=== PATIENT | female | born 1995 | race Caucasian/White ===

== ENCOUNTER 2017-05-07 11:41 | Observation (INO) ==
--- OUTSIDE RECORDS SUMMARY | 2017-05-07 12:15 | External Medical Summary | Summary of Care ---
:1995 Author Name Surekha Charles M.D. Address Unavailable Unavailable , Care Team Providers Name Role Phone Surekha Charles M.D. 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 Start 20-Apr-2016 End 30-Apr-2016 Active Allergies and Adverse Reactions Name Dates Details Amoxicillin CAPS (Allergy) Status: Active Past Medical History Name Dates Details History of abdominal pain (V13.89, Z87.898) Status: Resolved History of Acute pyelonephritis without lesion of renal medullary necrosis ( 590.10, N10) Status: Resolved History of Acute sinusitis (461.9, J01.90) Status: Resolved History of acute sinusitis (V12.69, Z87.09) Status: Resolved History of Body aches (780.96, R52) Status: Resolved History of Body aches (780.96, R52) Status: Resolved History of conjunctivitis (V12.49, Z86.69) Status: Resolved History of Contact dermatitis due to plant (692.6, L25.5) Status: Resolved History of Cough (786.2, R05) Status: Resolved History of Dysuria (788.1, R30.0) Status: Resolved History of fever (V13.89, Z87.898) Status: Resolved History of headache (V13.89, Z87.898) Status: Resolved History of Hidradenitis (705.83, L73.2) Status: Resolved History of impacted cerumen (V12.49, Z86.69) Status: Resolved History of influenza (V12.09, Z87.09) Status: Resolved History of Influenza-like illness (799.89, R69) Status: Resolved History of Laceration of great toe (893.0, S91.113A) Status: Resolved History of Other acute sinusitis (461.8, J01.80) Status: Resolved History of pharyngitis (V12.69, Z87.09) Status: Resolved History of vomiting (V13.89, Z87.898) Status: Resolved Procedures Procedure Dates Details History of Oral Surgery Procedures not documented Immunization Name Dates Details Hepatitis B on: 26-Feb-1998 DTaP on: 26-Feb-1998 OPV on: 26-Feb-1998 HIB on: 26-Feb-1998 DTaP on: 23-Apr-1998 OPV on: 23-Apr-1998 HIB on: 23-Apr-1998 Hepatitis B on: 23-Apr-1998 DTaP on: 02-Jul-1998 OPV on: 02-Jul-1998 HIB on: 02-Jul-1998 Hepatitis B on: DTaP on: 27-Dec-1998 HIB on: 27-Dec-1998 MMR on: 27-Dec-1998 Varicella on: 27-Dec-1998 Pneumo (Prevnar) on: 02-Jan-2000 DTaP on: IPV on: MMR on: Influenza on: 01-Feb-2009 Influenza A (H1N1) Monoval Vac LIQD on: 01-Feb-2009 Tdap (Adacel) on: 25-Nov-2009 Varicella on: 25-Nov-2009 FluMist LIQD on: 25-Nov-2009 Fluvirin INJ on: 24-Apr-2012 Influenza on: 21-Mar-2014 Hepatitis A #1 on: 19-Aug-2015 Lot #: [id number] Menactra Intramuscular Injectable #1 on: 19-Aug-2015 Lot #: [id number] Bexsero Intramuscular Suspension Prefilled Syringe #1 on: 19-Aug-2015 Lot #: [id number] Tdap (Adacel) on: 19-Aug-2015 Lot #: [id number] Bexsero Intramuscular Suspension Prefilled Syringe on: Lot #: [id number] Family History Unknown Family Member Name Dates Details Adopted (V68.89, Z02.82) Comments: Family History Status: Active Mother Name Dates Details Family history of multiple sclerosis (V17.2, Z82.0) Status: Active Social History Name Dates Details - Status: Smoking Status Name Dates Details Never smoker Vital Signs Date Test Result Details 20-Apr-2016 10:35 Temperature 99 f Status: Weight 138.5 lb Status: 07-Apr-2016 11:20 BP Systolic 112 mm[Hg] Status: BP Diastolic 68 mm[Hg] Status: Weight 142 lb Status: Results Date Description Value Details 08-Apr-2016 13:56 OB- [place] Depression Scale ( EPDS) I have been able to laugh and see the (0) As much as I always could funny side of things I have looked forward with enjoyment to (0) As much as I ever did things I have blamed myself unnecessarily when (2) Yes, some of the time things went wrong I have been anxious or worried for no (1) Hardly ever good reason I have felt scared or panicky for no very (0) No, not at all good reason Things have been getting on top of me (2) Yes, sometimes I have not been coping as well as usual I have been so unhappy that I have had (1) Not very often difficulty sleeping I have felt sad or miserable (0) No, not at all I have been so unhappy that I have been (1) Only occasionally crying The thought of harming myself has (1) Hardly-ever occurred to me Total Score 8 20-Apr-2016 11:25 STREPTOCOCCUS SCREEN WITH CULTURE 5040 *STREPTOCOCCUS SCREEN POSITIVE for Streptococcus Range: NEGATIVE for Streptococcus pyogenes pyogenes (Abnormal) 11:32 INFLUENZA A/B ANTIGEN 5320 Comments: *Negative results do not exclude Influenza viral infection and could be confirmed with Influenza molecular assays. Physician order would be required.* *INFLUENZA A/B ANTIGEN Negative Range: Negative 11:33 CBC w/ Manual Diff 7225 WBC 13.2 K/uL (Above high threshold) Range: 4.5-11.0 RBC 4.82 mil/uL Range: 3.60-5.00 HGB 13.9 g/dL Range: 12.0-16.0 HCT 40.3 % Range: 36.0-48.0 MCV 83.5 fL Range: 80.0-99.0 MCH 28.8 pg Range: 27.3-32.5 MCHC 34.5 % Range: 32.0-36.0 RDW 14.0 % Range: 11.6-14.8 PLATELETS 228 K/uL Range: 150-400 MPV 7.0 fL Range: 6.0-11.0 NEUTRO 11.8 K/uL (Above high threshold) Range: 2.0-6.9 SEGS 81 % (Above high threshold) Range: 37-80 BANDS 0 % Range: 0-7 LYMPH 9 % (Below low threshold) Range: 13-50 MONO 9 % Range: 0-12 EOSIN 1 % Range: 0-7 BASO 0 % Range: 0-3 BERONICA LYMPH 0 % Range: 0-0 META 0 % Range: 0-0 MYELO 0 % Range: 0-0 PRO 0 % Range: 0-0 BLAST 0 % Range: 0-0 NUC RBC 0 /100 WBC Range: 0-0 SMUDGE 0 /100 WBC PLATELET Adequate Range: Adequate 11:36 Mononucleosis Ab (Reflex to EBV) 2011 Comments: * Refer to [facility] results for EBV report* [place] (Reflex to EBV) Negative Range: Negative -Apr-2016 15:56 EBV Acute Infection Antibodies Comments: Testing performed at: [DA] [address], [place], [address], , Data Integrity Consultant: STACI Jauregui MD [id number] EBV AB VCA, IGM <36.0 U/mL Range: 0.0-35.9 Comments: Negative <36.0 Equivocal 36.0 - 43.9 Positive >43.9----- EBV EARLY ANTIGEN AB, IGG <9.0 U/mL Range: 0.0-8.9 Comments: Negative < 9.0 Equivocal 9.0 - 10.9 Positive >10.9----- EBV AB VCA, IGG <18.0 U/mL Range: 0.0-17.9 Comments: Negative <18.0 Equivocal 18.0 - 21.9 Positive >21.9----- EBV NUCLEAR ANTIGEN AB, IGG <18.0 U/mL Range: 0.0-17.9 Comments: Negative <18.0 Equivocal 18.0 - 21.9 Positive >21.9----- INTERPRETATION: Comment Comments: EBV Interpretation Chart Interpretation EBV-IgM EA(D)-IgG VCA-IgG EBNA-IgG EBV Seronegative - - - - Early Phase + - - - Acute Primary + +or- + - Infection Convalescence/Past - +or- + + Infection Reactivated +or- + + + Infection + Antibody Present - Antibody Absent----- Plan of Care Name Dates Details Planned Observations Planned Goals not documented Interventions Provided Medication ChangesCephalexin 500 MG Oral Capsule - Start Instructions Name Dates Details Instructions not documented Encounters Appointment; Ivon Núñez On 07-Apr-2016 Encounter Diagnosis: Problem not documented 11:00 Appointment; Ivon Núñez On 05-Feb-2016 Encounter Diagnosis: Problem not documented 14:15 Appointment; Carson Tan M.D. On 14-Jan-2016 Encounter Diagnosis: Problem not documented 10:30 Appointment; Kranthi Woo M.D. On Encounter Diagnosis: Problem not documented 16:15 Appointment; Carson Tan M.D. On 19-Aug-2015 Encounter Diagnosis: Problem not documented 14:00 Appointment; Surekha Charles M.D. On 22-May-2015 Encounter Diagnosis: Problem not documented 14:45 Appointment; Radha Solis M.D. On 08-Aug-2014 Encounter Diagnosis: Problem not documented 11:00 Appointment; Carson Tan M.D. On 29-May-2014 Encounter Diagnosis: Problem not documented 10:45 Appointment; Surekha Charles M.D. On 11-May-2014 Encounter Diagnosis: Problem not documented 11:15
--- OUTSIDE RECORDS SUMMARY | 2017-05-07 12:16 | External Medical Summary | Summary of Care ---
:1995 Author Name Carson Tan M.D. 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 Other acute sinusitis (461.8, J01.80) Status: Active Body aches (780.96, R52) Status: Active Need for prophylactic measure (V07.9, Z41.8) Status: Active Depression (311, F32.9) Status: Active Cough (786.2, R05) Status: Active Medications Name Dates Details Sertraline HCl - 50 MG Oral Tablet Take one tablet by mouth daily Quantity: 30 Refills: 0 Ivon Núñez Start 28-Feb-2016 Active Allergies and Adverse Reactions Name Dates Details Amoxicillin CAPS (Allergy) Status: Active Past Medical History Name Dates Details History of abdominal pain (V13.89, Z87.898) Status: Resolved History of Acute pyelonephritis without lesion of renal medullary necrosis ( 590.10, N10) Status: Resolved History of acute sinusitis (V12.69, Z87.09) Status: Resolved History of Acute sinusitis (461.9, J01.90) Status: Resolved History of Body aches (780.96, [...] toe (893.0, S91.113A) Status: Resolved History of pharyngitis (V12.69, Z87.09) [...] Hepatitis A #1 on: 19-Aug-2015 Lot #: [id number] Menactra Intramuscular Injectable #1 on: 19-Aug-2015 Lot #: [id number] Bexsero Intramuscular Suspension Prefilled Syringe #1 on: 19-Aug-2015 Lot #: [id number] Tdap (Adacel) on: 19-Aug-2015 Lot #: [id number] Bexsero Intramuscular Suspension Prefilled Syringe on: Lot #: [id number] Family History Unknown Family Member Name Dates Details Adopted (V68.89, Z02.82) Comments: Family History Status: Active Mother Name Dates Details Family history of multiple sclerosis (V17.2, Z82.0) Status: Active Social History Name Dates Details - Status: Smoking Status Name Dates Details Never smoker Vital Signs Date Test Result Details No Known Vitals to report Results Date Description Value Details Results not documented Plan of Care Name Dates Details Planned Observations Planned Goals not documented Planned Encounters Appointment; Provider: Ivon Núñez On 17-Mar-2016 14:30 Interventions Provided Medication ChangesCefdinir 300 MG Oral Capsule - StartOndansetron 8 MG Oral Tablet Dispersible - Completed Instructions Name Dates Details Instructions not documented Encounters Appointment; Kranthi Woo M.D. On Encounter Diagnosis: [...]
--- OUTSIDE RECORDS SUMMARY | 2017-05-07 12:16 | External Medical Summary | Summary of Care ---
:1995 Author Name Ivon Núñez Address [address] Unavailable [place], [place] [id number] Care Team Providers Name Role Phone Carson Tan M.D. Unavailable Unavailable Ivon Núñez Unavailable Unavailable [...] Status: Active Depression (311, F32.9) Status: Active Medications Name Dates Details Cefdinir 300 MG Oral Capsule 2 capsules po q day x 10 days. Quantity: 20 Refills: 0 Carson Tan M.D. Start 14-Jan-2016 Active Sertraline HCl - 50 MG Oral Tablet Take one tablet by mouth daily Quantity: 30 Refills: 0 Ivon Núñez Start 06-Feb-2016 Active Allergies and Adverse Reactions Name Dates [...] Hepatitis A #1 on: 19-Aug-2015 Lot #: [id number] Menactra Intramuscular Injectable #1 on: 19-Aug-2015 Lot #: [id number] Bexsero Intramuscular Suspension Prefilled Syringe #1 on: 19-Aug-2015 Lot #: [id number] Tdap (Adacel) on: 19-Aug-2015 Lot #: [id number] Bexsero Intramuscular Suspension Prefilled Syringe on: Lot #: [id number] Family History Unknown Family Member Name Dates Details Adopted (V68.89, Z02.82) Comments: Family History Status: Active Mother Name Dates Details Family history of multiple sclerosis (V17.2, Z82.0) Status: Active Social History Name Dates Details - Status: Smoking Status Name Dates Details Never smoker Vital Signs Date Test Result Details 05-Feb-2016 14:33 BP Systolic 111 mm[Hg] Status: Comments: Location: ; Position: BP Diastolic 74 mm[Hg] Status: Comments: Location: ; Position: Height 65.5 in Status: Weight 151 lb Status: Body Mass Index Calculated 24.75 kg/m2 Status: Body Surface Area Calculated 1.77 m2 Status: 14-Jan-2016 10:53 BP Systolic 105 mm[Hg] Status: Comments: Location: ; Position: BP Diastolic 60 mm[Hg] Status: Comments: Location: ; Position: Temperature 98.3 f Status: Weight 67.58 kg Status: Results Date Description Value Details Results not documented Plan of Care Name Dates Details Planned Observations Planned Goals not documented Planned Encounters Appointment; Provider: Ivon Núñez On 10-Mar-2016 15:30 Interventions Provided Medication ChangesSertraline HCl - 50 MG Oral Tablet - Start Instructions Name Dates Details Instructions not documented Encounters Appointment; Carson Tan M.D. On 14-Jan-2016 Encounter [...]
--- OUTSIDE RECORDS SUMMARY | 2017-05-07 12:16 | External Medical Summary | Summary of Care ---
:1995 Author Name Surekha Charles M.D. 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 Body aches (780.96, R52) Status: Active Medications Name Dates Details No Reported Medications Refills: 0 Active Allergies and Adverse Reactions Name Dates Details Amoxicillin CAPS Status: Active Past Medical History Name Dates [...] Cough (786.2, R05) Status: Resolved History of Cough (786.2, R05) Status: Resolved History of Dysuria (788.1, R30.0) Status: Resolved History of fever (V13.89, Z87.898) Status: Resolved History of headache (V13.89, Z87.898) Status: Resolved History of Hidradenitis (705.83, L73.2) Status: Resolved History of influenza (V12.09, Z87.09) Status: Resolved History of Influenza-like illness (487.1, J11.1) Status: Resolved History of Laceration Of Great Toe (893.0, S91.113A) Status: Resolved History of vomiting (V13.89, Z87.898) Status: Resolved Procedures Procedure Dates Details BASIC METABOLIC PROFILE 1210 Ordered:22-May-2015 STREPTOCOCCUS SCREEN WITH CULTURE 5040 Ordered:22-May-2015 Mononucleosis Ab (Reflex to EBV) 2011 Ordered:22-May-2015 INFLUENZA A/B ANTIGEN 5320 Ordered:22-May-2015 CBC w/ Manual Diff 7225 Ordered:22-May-2015 Immunization Name Dates Details Hepatitis B Administered on:26-Feb-1998 DTaP Administered on:26-Feb-1998 OPV Administered on:26-Feb-1998 HIB Administered on:26-Feb-1998 DTaP Administered on:23-Apr-1998 OPV Administered on:23-Apr-1998 HIB Administered on:23-Apr-1998 Hepatitis B Administered on:23-Apr-1998 DTaP Administered on:02-Jul-1998 OPV Administered on:02-Jul-1998 HIB Administered on:02-Jul-1998 Hepatitis B Administered on: DTaP Administered on:27-Dec-1998 HIB Administered on:27-Dec-1998 MMR Administered on:27-Dec-1998 Varicella Administered on:27-Dec-1998 Pneumo (Prevnar) Administered on:02-Jan-2000 DTaP Administered on: IPV Administered on: MMR Administered on: Influenza Administered on:01-Feb-2009 Influenza A (H1N1) Monoval Vac Nasal Liquid Administered on:01-Feb-2009 Tdap (Adacel) Administered on:25-Nov-2009 Varicella Administered on:25-Nov-2009 FluMist Nasal Liquid Administered on:25-Nov-2009 Fluvirin Intramuscular Injectable Administered on:24-Apr-2012 Influenza Administered on:21-Mar-2014 Social History Name Dates Details Smoking StatusNever smoker Vital Signs Date Test Result Details No Known Vitals to report Results Date Description Value Details Results not documented Plan of Care Planned Observations Name Dates Details Planned Goals not documented Goal Instructions Instructions not documented Encounters Appointment; Surekha Charles On 22-May-2015 Encounter Diagnosis: Problem not documented 14:45 Appointment; Radha Solis On 08-Aug-2014 Encounter Diagnosis: Problem not documented 11:00 Appointment; Carson Tan On 29-May-2014 Encounter Diagnosis: Problem not documented 10:45 Appointment; Surekha Charles On 11-May-2014 Encounter Diagnosis: Problem not documented 11:15 Appointment; Bud Pulido On Encounter Diagnosis: Problem not documented 09:45 Appointment; Carson Tan On 22-Aug-2013 Encounter Diagnosis: Problem not documented 15:00 Appointment; Carson Tan On 20-Jul-2013 Encounter Diagnosis: Problem not documented 14:30
--- OUTSIDE RECORDS SUMMARY | 2017-05-07 12:16 | External Medical Summary | Summary of Care ---
:1995 Author Name Surekha Charles M.D. Address [address] [place], [place] [id number] Care Team Providers Name Role Phone Surekha Charles M.D. Unavailable Unavailable Carson Tan Primary Care Provider Unavailable Unavailable [...] R52) Status: Active Medications Name Dates Details Cefdinir 300 MG Oral Capsule TAKE 1 CAPSULE EVERY 12 HOURS DAILY. Quantity: 20 Refills: 0 Surekha Charles M.D. Started 22-May-2015 Active Allergies and Adverse Reactions Name Dates [...] Toe (893.0, S91.113A) Status: Resolved History of pharyngitis (V12.69, Z87.09) Status: Resolved History of vomiting (V13.89, Z87.898) Status: Resolved Procedures Procedure Dates Details INFLUENZA A/B ANTIGEN 5320 Ordered:22-May-2015 CBC w/ [...] smoker Vital Signs Date Test Result Details 29-May-2015 16:21 Temperature 98.6 f Status: Weight 60 kg Status: Results Date Description Value Details 22-May-2015 STREPTOCOCCUS SCREEN Comments: *Culture in progress* 16:00 WITH CULTURE 5040 *STREPTOCOCCUS SCREEN NEGATIVE for Range: NEGATIVE for Streptococcus pyogenes Streptococcus pyogenes (Better) 16:13 BASIC METABOLIC PROFILE 1210 SODIUM 137 mmol/L (Better) Range: 133-144 POTASSIUM 3.7 mmol/L (Better) Range: 3.5-5.1 CHLORIDE 102 mmol/L (Better) Range: 98-110 CARBON DIOXIDE 24.3 mmol/L (Better) Range: 23.0-33.0 ANION GAP 11 mmol/L (Better) Range: 6-16 BUN 10 mg/dL (Better) Range: 7-18 CREATININE, SERUM 0.94 mg/dL (Better) Range: 0.55-1.02 Comments: Please note new reference ranges effective 2014.----- BUN:CREATININE RATIO 11 (Better) GLUCOSE 76 mg/dL (Better) Range: 70-100 CALCIUM 8.8 mg/dL (Better) Range: 8.5-10.1 24-May-2015 THROAT CULTURE [id number] Comments: [employer] [facility] [address] [place], [address], Tear Down Worker: Chuy Gonzalez D.O., MPHQuest Collection Date/Time: 14:45 [id number] Results Received Date/Time: [id number] Reported Date/Time: [id number] CULTURE, THROAT SEE NOTE (Better) Comments: CULTURE, THROAT MICRO NUMBER: [id number] TEST STATUS: FINAL SPECIMEN SOURCE: THROAT SPECIMEN QUALITY: ADEQUATE RESULT: No oropharyngeal pathogens recovered.[DE]----- Plan of Care Planned Observations Name Dates [...]
--- OUTSIDE RECORDS SUMMARY | 2017-05-07 12:16 | External Medical Summary | Summary of Care ---
:1995 Author Name Josey Woo M.D. Address [address] [place], [place] [id number] Care Team Providers Name Role Phone Carson Tan M.D. Unavailable Unavailable Carson Tan Primary Care [...] for prophylactic measure (V07.9, Z41.8) Status: Active Medications Name Dates Details Ondansetron 8 MG Oral Tablet Dispersible Take 1 tablet by mouth three times a day as needed for nausea and vomiting. Quantity: 12 Refills: 0 Carson Tan M.D. Started 19-Aug-2015 Active Allergies and Adverse Reactions Name Dates [...] (799.89, R69) Status: Resolved History of Laceration Of Great Toe (893.0, S91.113A) Status: Resolved History of pharyngitis (V12.69, Z87.09) Status: Resolved History of vomiting (V13.89, Z87.898) Status: Resolved Procedures Procedure Dates Details Procedures not documented Immunization Name Dates Details Hepatitis B Administered [...] Intramuscular Injectable Administered on:24-Apr-2012 Influenza Administered on:21-Mar-2014 Hepatitis A #1 Administered on:19-Aug-2015 Lot #: [id number] Menactra Intramuscular Injectable #1 Administered on:19-Aug-2015 Lot #: [id number] Bexsero Intramuscular Suspension Prefilled Syringe #1 Administered on:2015 Lot #: [id number] Tdap (Adacel) Administered on:19-Aug-2015 Lot #: [id number] Bexsero Intramuscular Suspension Prefilled Syringe Administered on:2015 Lot #: [id number] Family History Mother Name Dates Details Family history of multiple sclerosis (V17.2, Z82.0) Status: Active Social History Name Dates Details Smoking StatusNever smoker Vital Signs Date Test Result Details No Known Vitals to report Results Date Description Value Details Results not documented Plan of Care Planned Observations Name Dates Details Planned Goals not documented Goal Planned Encounters Appointment; Provider: Carson Tan On 16:15 Instructions Instructions not documented Encounters Appointment; Kranthi Woo On Encounter Diagnosis: Problem not documented 16:15 Appointment; Carson Tan On 19-Aug-2015 Encounter Diagnosis: Problem not documented 14:00 Appointment; Surekha Charles On 22-May-2015 Encounter Diagnosis: Problem not documented 14:45 Appointment; Radha Solis On 08-Aug-2014 Encounter Diagnosis: Problem not documented 11:00 Appointment; Carson Tan On 29-May-2014 Encounter Diagnosis: Problem not documented 10:45 Appointment; Surekha Charles On 11-May-2014 Encounter Diagnosis: Problem not documented 11:15
--- OUTSIDE RECORDS SUMMARY | 2017-05-07 12:16 | External Medical Summary | Summary of Care ---
[...] Hepatitis A #1 on: 19-Aug-2015 Lot #: [id number] Menactra Intramuscular Injectable #1 on: 19-Aug-2015 Lot #: [id number] Bexsero Intramuscular Suspension Prefilled Syringe #1 on: 19-Aug-2015 Lot #: [id number] Tdap (Adacel) on: 19-Aug-2015 Lot #: [id number] Bexsero Intramuscular Suspension Prefilled Syringe on: Lot #: [id number] Family History Unknown Family Member Name Dates [...] Date Description Value Details 08-Apr-2016 13:56 OB- [place] Depression Scale ( EPDS) I have been [...] Refer to [facility] results for EBV report* [place] (Reflex to EBV) Negative Range: Negative -Apr-2016 15:56 EBV Acute Infection Antibodies Comments: Testing performed at: [DA] [address], [place], [address], , Television Agent: STACI Jauregui MD [id number] EBV AB VCA, IGM <36.0 U/mL Range: [...] Details Planned Observations Planned Goals not documented Instructions Name Dates Details Instructions not documented Encounters Appointment; Surekha Charles M.D. On 20-Apr-2016 Encounter Diagnosis: Problem not documented 10:00 Appointment; Ivon Núñez On 07-Apr-2016 Encounter Diagnosis: [...]
--- OUTSIDE RECORDS SUMMARY | 2017-05-07 12:16 | External Medical Summary | Summary of Care ---
:1995 Author Name Ivon Núñez Address [address] Unavailable [place], [place] [id number] Care Team Providers Name Role Phone Carson Tan M.D. Unavailable Unavailable vIon Núñez Unavailable Unavailable Carson Tan Unavailable Unavailable [...] Z41.8) Status: Active Medications Name Dates Details Cefdinir 300 MG Oral Capsule 2 capsules po q day x 10 days. Quantity: 20 Refills: 0 Carson Tan M.D. Start 14-Jan-2016 Active Allergies and Adverse Reactions Name Dates [...] (V13.89, Z87.898) Status: Resolved History of headache (V1., Z87.898) Status: Resolved History of Hidradenitis (705.83, [...] Hepatitis A #1 on: 19-Aug-2015 Lot #: [id number] Menactra Intramuscular Injectable #1 on: 19-Aug-2015 Lot #: [id number] Bexsero Intramuscular Suspension Prefilled Syringe #1 on: 19-Aug-2015 Lot #: [id number] Tdap (Adacel) on: 19-Aug-2015 Lot #: [id number] Bexsero Intramuscular Suspension Prefilled Syringe on: Lot #: [id number] Family History Unknown Family Member Name Dates Details Adopted (V68.89, Z02.82) Comments: Family History Status: Active Mother Name Dates Details Family history of multiple sclerosis (V17.2, Z82.0) Status: Active Social History Name Dates Details - Status: Smoking Status Name Dates Details Never smoker Vital Signs Date Test Result Details 14-Jan-2016 10:53 BP Systolic 105 mm[Hg] Status: Comments: Location: ; Position: BP Diastolic 60 mm[Hg] Status: Comments: Location: ; Position: Temperature 98.3 f Status: Comments: Method: Weight 67.58 kg Status: Results Date Description [...]
--- OUTSIDE RECORDS SUMMARY | 2017-05-07 12:16 | External Medical Summary | Summary of Care ---
:1995 Author Name Radha Solis M.D. Address [address] [place], [place] [id number] Care Team Providers Name Role Phone Carson Tan Primary Care Provider Unavailable Unavailable Unavailable Unavailable Functional Status Functional Status Health Issues Name Dates Details Functional status health issues are not documented Status: Cognitive Status Health Issues Name Dates Details Cognitive status health issues are not documented Status: Problems Name Dates Details Hidradenitis (705.83, L73.2) Status: Active Benign mole (216.9, D22.9) Status: Active Acute sinusitis (461.9, J01.90) Status: Active Headache (784.0, R51) Status: Active Influenza-like illness (487.1, J11.1) Status: Active Cough (786.2, R05) Status: Active Pharyngitis (462, J02.9) Status: Active Medications Name Dates Details No [...] fever (V13.89, Z87.898) Status: Resolved History of influenza (V12.09, Z86.19) Status: Resolved History of Laceration Of Great Toe (893.0, S91.113A) Status: Resolved History of vomiting (V13.89, Z87.898) Status: Resolved Procedures Procedure Dates Details STREPTOCOCCUS SCREEN WITH CULTURE 5040 Ordered:08-Aug-2014 Immunization Name Dates Details Hepatitis B Administered [...] smoker Vital Signs Date Test Result Details 08-Aug-2014 11:32 Temperature 98.7 f Status: Weight 132.5 lb Status: Results Date Description Value Details Results not documented Plan of Care Planned Observations Name Dates Details Planned Goals not documented Goal Instructions Instructions not documented Encounters Appointment; Radha Solis On 08-Aug-2014 Encounter Diagnosis: [...] 20-Jul-2013 Encounter Diagnosis: Problem not documented 14:30 Appointment; Reba Villar On 25-Nov-2012 Encounter Diagnosis: Problem not documented 11:05 Appointment; Carson Tan On Encounter Diagnosis: Problem not documented 10:30
--- OUTSIDE RECORDS SUMMARY | 2017-05-07 12:16 | External Medical Summary | Summary of Care ---
:1995 Author Name DialloIvon riojas Address [address] Unavailable [place], [place] [id number] Care Team Providers Name Role Phone Luke Núñezfanie Unavailable Unavailable Carson Tan Unavailable Unavailable Unavailable [...] F32.9) Status: Active Medications Name Dates Details Sertraline [...] (V13.89, Z87.898) Status: Resolved History of headache (V13., Z87.898) Status: Resolved History of Hidradenitis (705.83, [...] Hepatitis A #1 on: 19-Aug-2015 Lot #: [id number] Menactra Intramuscular Injectable #1 on: 19-Aug-2015 Lot #: [id number] Bexsero Intramuscular Suspension Prefilled Syringe #1 on: 19-Aug-2015 Lot #: [id number] Tdap (Adacel) on: 19-Aug-2015 Lot #: [id number] Bexsero Intramuscular Suspension Prefilled Syringe on: Lot #: [id number] Family History Unknown Family Member Name Dates Details Adopted (V68.89, Z02.82) Comments: Family History Status: Active Mother Name Dates Details Family history of multiple sclerosis (V17.2, Z82.0) Status: Active Social History Name Dates Details - Status: Smoking Status Name Dates Details Never smoker Vital Signs Date Test Result Details 07-Apr-2016 11:20 BP Systolic 112 mm[Hg] Status: Comments: Location: ; Position: BP Diastolic 68 mm[Hg] Status: Comments: Location: ; Position: Weight 142 lb Status: Results Date Description Value Details Results not documented Plan of Care Name Dates Details Planned Observations Planned Goals not documented Instructions Name Dates Details Instructions not documented Encounters Appointment; Ivon Núñez On 05-Feb-2016 Encounter Diagnosis: [...]
--- OUTSIDE RECORDS SUMMARY | 2017-05-07 12:16 | External Medical Summary | Summary of Care ---
:1995 Author Name aRdha Solis M.D. 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
--- OUTSIDE RECORDS SUMMARY | 2017-05-07 12:16 | External Medical Summary | Summary of Care ---
:1995 Author Name Surekha Charles M.D. Address Unavailable Unavailable , Care Team Providers Name Role Phone Melvin Ann Surekha Unavailable Unavailable Ivon Núñez Unavailable Unavailable Carson [...] Active Sore throat (462, J02.9) Status: Active Medications Name Dates Details Sertraline HCl - 50 MG Oral Tablet Take one tablet by mouth daily Quantity: 30 Refills: 0 Ivon Núñez Start -Mar-2016 Active Allergies and Adverse Reactions Name Dates [...] Hepatitis A #1 on: 19-Aug-2015 Lot #: [id number] Menactra Intramuscular Injectable #1 on: 19-Aug-2015 Lot #: [id number] Bexsero Intramuscular Suspension Prefilled Syringe #1 on: 19-Aug-2015 Lot #: [id number] Tdap (Adacel) on: 19-Aug-2015 Lot #: [id number] Bexsero Intramuscular Suspension Prefilled Syringe on: Lot #: [id number] Family History Unknown Family Member Name Dates [...] Date Description Value Details 08-Apr-2016 13:56 OB- Hughes Depression Scale ( EPDS) I have been [...] Hardly-ever occurred to me Total Score 8 Plan of Care Name Dates Details Planned [...]
--- OUTSIDE RECORDS SUMMARY | 2017-05-07 12:17 | External Medical Summary | Summary of Care ---
:1995 Author Name Surekha Charles M.D. Address [address] [place], [place] [phone] Care Team Providers Name Role Phone Surekha [...] Z87.898) Status: Resolved Procedures Procedure Dates Details Mononucleosis Ab (Reflex to EBV) 2011 Ordered:22-May-2015 [...] mg/dL (Better) Range: 8.5-10.1 24-May-2015 THROAT CULTURE [id number] Comments: [employer] performed at: [facility] [address] [place], [address], Plastic Tile Layer: Chuy Gonzalez D.O., MPHQuest Collection Date/Time: 14:45 [id number] Results Received Date/Time: [id number] Reported Date/Time: [id number] CULTURE, THROAT SEE NOTE (Better) Comments: CULTURE, THROAT MICRO NUMBER: [id number] TEST STATUS: FINAL SPECIMEN SOURCE: THROAT SPECIMEN QUALITY: ADEQUATE RESULT: No oropharyngeal pathogens recovered.[MO]----- Plan of Care Planned Observations Name Dates [...]
--- OUTSIDE RECORDS SUMMARY | 2017-05-07 12:17 | External Medical Summary | Summary of Care ---
:1995 Author Name Surekha Charles M.D. Address [address] [place], [place] [id number] Care Team Providers Name Role Phone Surekha [...] mg/dL (Better) Range: 8.5-10.1 24-May-2015 THROAT CULTURE [id number] Comments: [employer] performed at: [facility], [address] [place], [address], Technology Integration Specialist: Chuy Gonzalez D.O., MPHQuest Collection Date/Time: 14:45 [id number] Results Received Date/Time: [id number] Reported Date/Time: [id number] CULTURE, THROAT SEE NOTE (Better) Comments: CULTURE, THROAT MICRO NUMBER: [id number] TEST STATUS: FINAL SPECIMEN SOURCE: THROAT SPECIMEN QUALITY: ADEQUATE RESULT: No oropharyngeal pathogens recovered.[ND]----- Plan of Care Planned Observations Name Dates [...]
--- OUTSIDE RECORDS SUMMARY | 2017-05-07 12:17 | External Medical Summary | Continuity of Care Document ---
:1995 Author Organization [facility] Allergies Active Description Code Type Severity Reaction Onset Reported/ Identified Relationship Clinical to Patient Status Yes No Known 02687 3 N/A N/A 03/11/1100 Allergies 8 Medications There is no data. Problems Date Dx Coded Attending Type Code Diagnosis Diagnosed By 02/03/2016 W S49.91XA Shoulder injury, right, initial encounter 02/11/2016 W S49.91XA Shoulder injury, right, initial encounter 02/17/2016 W S49.91XA Shoulder injury, right, initial encounter 03/26/2016 W G25.89 Scapular dyskinesis 03/26/2016 W S43.431A Labral tear of shoulder, right, initial encounter Procedures Code Description [place] [address] X-RAY EXAM 01/30/2016 OF SHOULDER 75392 01/30/2016 OFFICE/OUTPATIENT VISIT NEW 09525 02/11/2016 OFFICE/OUTPATIENT VISIT EST Results There is no data. Encounters ACCT Visit Discharge Status Pt. Type Provider Facility Loc./Unit Complaint No. Date/Time 75169 02/11/2016 02/11/2016 [facility] 13:30:00 23:59:59 [facility]
--- OUTSIDE RECORDS SUMMARY | 2017-05-07 12:17 | External Medical Summary | Summary of Care ---
:1995 Author Name Surekha Charles M.D. Address [address], [place] [id number] Care Team Providers Name Role Phone Surekha [...] Active Body aches (780.96, R52) Status: Active Other acute sinusitis (461.8, J01.80) Status: Active Medications Name Dates Details Cefdinir [...] to report Results Date Description Value Details 22-May-2015 STREPTOCOCCUS [...] 70-100 CALCIUM 8.8 mg/dL (Better) Range: 8.5-10.1 Plan of Care Planned Observations Name Dates [...]
[2017-05-07] MEDS ORDERED: NS 1,000 ML IV ONE (12:27)
[2017-05-07] MEDS ORDERED: MORPHINE SULFATE 4mg INJECTION IVP ONE ×2 (12:27→14:41)
[2017-05-07] MEDS ORDERED: ONDANSETRON 4 MG/2 ML INJECTION IVP ONE (12:27)
[2017-05-07] MEDS ORDERED: SALINE FLUSH 10ml SYRINGE IVF PRN (12:27)
--- NOTE | 2017-05-07 12:31 | Emergency Department Report ---
Abdominal Pain HPI - General Chief Complaint: Abdominal Pain Stated Complaint: rt side abd pain Time Seen by Provider: 05/07/17 12:10 Source: patient Mode of arrival: ambulatory Limitations: no limitations - History of Present Illness HPI narrative: She started having some RLQ abdominal pain this morning around 0730. Does feel like it has gotten worse since it started. Does come and go in intensity however. Has had some nausea/vomiting today and one episode of diarrhea. She does not think that she has had a fever at all. MD complaint: abdominal pain Onset (ago): hour(s) (Started at 0730) Consistency: intermittent Location: RLQ Severity: moderate Quality: sharp Radiation: none Relieving factors: nothing Exacerbating factors: nothing Associated symptoms: nausea, vomiting, diarrhea - Related Data Home Medications Medication Instructions Recorded Confirmed ARIPiprazole [Aripiprazole] 2 mg PO HS 05/07/17 05/07/17 Sertraline [Zoloft] 100 mg PO HS 05/07/17 05/07/17 Allergies Allergy/AdvReac Type Severity Reaction Status Date / Time No Known Allergies Allergy Verified 05/07/17 12:22 Review of Systems Constitutional: Denies: fever, chills, weakness ENT: Denies: ear pain, throat pain, congestion Cardiovascular: Denies: chest pain, palpitations, dyspnea on exertion, edema Respiratory: Denies: cough, dyspnea, wheezes Gastrointestinal: Reports: abdominal pain, nausea, vomiting, diarrhea Genitourinary: Denies: urgency, dysuria, frequency Integumentary: Denies: rash Neurological: Denies: headache, weakness, numbness, paresthesias PFSH Patient Stated Medical History Hx Urinary Tract Infection Yes: HX OF Depression Yes Other Reproductive Yes: "HEAVY PERIODS AND REALLY BAD CRAMPING" - Social History Smoking status: Never smoker Substance use type: does not use Alcohol intake frequency: does not drink Physical Exam - Limitations Limitations: no limitations - General General appearance: alert, in no apparent distress - Normal Exams: Neck:: Full range of motion, without adenopathy, JVD, bruits or thyromegaly Chest/Respirations:: Clear all oden, with good airflow, and symmetry bilaterally Cardiovascular:: Regular rate and rhythm, without murmur or gallop, Pulses 2+ all extremities, capillary refill, <2 seconds all extremities Abdomen:: Bowel sounds positive, non-distended, no hepatosplenomegaly, masses or bruits noted Lymphatic:: No lymphadenopathy, or lymphedema noted Neurological:: Patient is alert, and oriented Psychiatric:: Patient exhibits, appropriate attention, emotion and affect - Abdominal Exam Abdominal exam: Present: soft, tenderness (TTP in RUQ and RLQ), guarding ( voluntary), diminished bowel sounds. Absent: distention - Back Exam Back exam: Present: normal inspection, full ROM. Absent: tenderness, CVA tenderness (R), CVA tenderness (L) Abdominal Pain - MDM Narrative Medical decision making narrative: She is now back from CT. Is still in pain and vomiting. Will give Toradol and Compazine IV. Ct scan does show a right distal ureter 3mm stone. WBC is elevated at 19, 75% neutrophils, and 7% bands. She is still having quite a bit of pain and nausea. Did talk with Dr Duarte. He is not director special education this weekend and recommends if urology needed could contact [place] provider. Did talk with Dr Acevedo. Given that her stone is 3mm in size and at the IVJ and she should be able to pass this on her own, will admit for pain control and Iv antibiotics. - Differential Diagnosis Differential diagnosis: Likely: abdominal pain, acute appendicitis, constipation , diverticulitis - Lab Data Attestation: I reviewed the patient's lab results. Result diagrams: 05/07/17 13:07 05/07/17 13:07 - Radiology Data Attestation: I reviewed the patient's radiology results. Date of Exam: 05/07/17 Ordering Provider: Mattie Cunningham APRN Type of Exam(s): CT abdomen pelvis w con Reason for Exam(s): abdominal pain EXAM: CT abdomen pelvis w con DATE: 05/07/2017 12:00 AM ENCOUNTER: Initial INDICATION: abdominal pain, right lower quadrant with nausea, vomiting, and diarrhea since this morning COMPARISON: None available. TECHNIQUE: CT of the abdomen and pelvis with IV contrast. The patient received 89.2 mL of Omnipaque 300 without complication. Coronal and sagittal reformatted images were performed. The current CT scan was performed using radiation dose-reduction techniques. FINDINGS: Lower Chest: The visualized portions of the lower lungs are well aerated. No focal airspace disease. The heart is normal in size without pericardial effusion. Abdomen: No intraperitoneal free air. No intra-abdominal free fluid or fluid collections. No lymphadenopathy. Liver: The liver enhances homogeneously without focal masses. Gallbladder and biliary: The gallbladder appears normal. No biliary ductal dilatation. Spleen: The spleen appears normal. Pancreas: The pancreas demonstrates homogeneous attenuation. Adrenal glands: The adrenal glands are normal in size and attenuation. Kidneys/ureters: Asymmetric prominence of the right renal pelvis and ureter relative to the left. There is suggestion of a small 3 mm stone within the distal right ureter best appreciated on coronal images 22/23. The kidneys appear otherwise normal. GI tract: The stomach, small bowel, and colon appear grossly normal. The appendix is normal. Vascular structures: The aorta is normal in course and caliber. The mesenteric arterial and venous structures appear patent. Pelvis: No pelvic free fluid. No pelvic lymphadenopathy. Bladder: The bladder appears normal. Genital system: The uterus and ovaries appear grossly normal. Skeletal structures and soft tissues: The visualized skeletal structures are grossly normal. IMPRESSION: Mild right hydroureteronephrosis secondary to a 3 mm stone within the distal right ureter at the ureterovesicular junction. . Disposition Clinical Impression: Ureteral stone Urinary tract infection Qualifiers: Urinary tract infection type: acute cystitis Hematuria presence: without hematuria Qualified Code(s): N30.00 - Acute cystitis without hematuria Disposition: 02 To [facility] Condition: Stable Time of Disposition: 14:42 - Seen By: midlevel
[2017-05-07] MEDS ORDERED: CEFTRIAXONE (ER USE ONLY) 1 GM in NS 100 ML IV ONE (13:16)
[2017-05-07] MEDS ORDERED: IOHEXOL 300mg/ml 100ml INJECTION ONE (13:40)
[2017-05-07] MEDS ORDERED: SALINE FLUSH 10ml SYRINGE ONE (13:40)
[2017-05-07] MEDS ORDERED: KETOROLAC 30 MG/ML INJECTION IVP ONE (14:03)
[2017-05-07] MEDS ORDERED: PROCHLORPERAZINE 10 MG/2 ML INJECTION IVP ONE (14:03)
--- NOTE | 2017-05-07 14:18 | CT Scan Report ---
EXAM: CT abdomen pelvis w con DATE: 05/07/2017 12:00 AM ENCOUNTER: Initial INDICATION: abdominal pain, right lower quadrant with nausea, vomiting, and diarrhea since this morning COMPARISON: None available. TECHNIQUE: CT of the abdomen and pelvis with IV contrast. The patient received 89.2 mL of Omnipaque 300 without complication. Coronal and sagittal reformatted images were performed. The current CT scan was performed using radiation dose-reduction techniques. FINDINGS: Lower Chest: The visualized portions of the lower lungs are well aerated. No focal airspace disease. The heart is normal in size without pericardial effusion. Abdomen: No intraperitoneal free air. No intra-abdominal free fluid or fluid collections. No lymphadenopathy. Liver: The liver enhances homogeneously without focal masses. Gallbladder and biliary: The gallbladder appears normal. No biliary ductal dilatation. Spleen: The spleen appears normal. Pancreas: The pancreas demonstrates homogeneous attenuation. Adrenal glands: The adrenal glands are normal in size and attenuation. Kidneys/ureters: Asymmetric prominence of the right renal pelvis and ureter relative to the left. There is suggestion of a small 3 mm stone within the distal right ureter best appreciated on coronal images 22/23. The kidneys appear otherwise normal. GI tract: The stomach, small bowel, and colon appear grossly normal. The appendix is normal. Vascular structures: The aorta is normal in course and caliber. The mesenteric arterial and venous structures appear patent. Pelvis: No pelvic free fluid. No pelvic lymphadenopathy. Bladder: The bladder appears normal. Genital system: The uterus and ovaries appear grossly normal. Skeletal structures and soft tissues: The visualized skeletal structures are grossly normal. IMPRESSION: Mild right hydroureteronephrosis secondary to a 3 mm stone within the distal right ureter at the ureterovesicular junction. .
[2017-05-07] MEDS ORDERED: NS 1,000 ML IV SCH (14:45)
[2017-05-07 14:48] VITALS: RESP 16
[2017-05-07] MEDS ORDERED: HYDROMORPHONE 2 MG/ML INJECTION IVP PRN (15:37)
[2017-05-07] MEDS ORDERED: ONDANSETRON 4 MG/2 ML INJECTION IVP PRN (15:37)
[2017-05-07 15:42] VITALS: BMI 23.6
--- NOTE | 2017-05-07 15:51 | History & Physical Report ---
History of Present Illness Date: 05/07/17 Chief complaint: Abdominal pain, N/V, Renal calculi HPI: Patient is a very pleasant 21-year-old female who presented to the emergency room today for acute evaluation of right lower quadrant abdominal pain that started approximately 7 a.m. this morning. She reports over the course of the morning her symptoms began to worsen and were accompanied with nausea and vomiting along with one episode of diarrhea. She denied having any fevers, coughs, or other symptoms. Further acute evaluation was performed in the emergency room. Patient was found have leukocytosis with white count of 19.6, 76 % neutrophils, 7% bands. Patient did have mild hypokalemia, potassium of 3.4. Urinalysis is obtained showing trace protein, positive nitrates, 2+ leukocyte esterase, 3-50 WBCs with 4+ bacteria. Urine hCG is negative. Given her symptoms. CT scan of the abdomen was obtained. Patient was found to have mild right hydronephrosis secondary to a 3 millimeter stone within the distal right ureter at the UVJ. On arrival to the ER, patient was afebrile 98.4, pulse 64, respiration 16, blood pressure 124/84. Room air saturations 100%. Despite aggressive IV fluids, morphine, Toradol, Zofran, Compazine, she continued to have nausea and abdominal pain. Given these findings the hospitalist services were contacted and accepted patient for outpatient observation admission for further evaluation and treatment. It is expected that her stay will be less than 2 overnights. Patient does report that his prior to transportation to medical floor room. She did urinate and did note 2 small " foreign bodies" which may represent renal calculi. This was not collected by nursing staff. Review of Systems All systems PM: 10-point ROS was reviewed, no additional remarkable complaints except - Gastrointestinal Gastrointestinal: Present: abdominal pain (right lower quadrant), diarrhea, nausea Past Medical History Patient Stated Medical History Depression History of urinary tract infections as a young child History of heavy menstruation Surgical History: [place] teeth extraction Family History Updates: Patient was adopted. Family history is unknown - Social History Smoking status: Never smoker Substance use type: does not use Alcohol intake: never Alcohol intake frequency: does not drink Housing: other (college dormitory) Social history: Patient is a [employer] student [facility] She is originally from [place], [place]. Primary care provider-Jessenia Geiger APRN at [facility] Medications Home Medications Medication Instructions Recorded Confirmed Type ARIPiprazole [Aripiprazole] 2 mg PO HS 05/07/17 05/07/17 History Sertraline [Zoloft] 100 mg PO HS 05/07/17 05/07/17 History Allergies Allergy/AdvReac Type Severity Reaction Status Date / Time No Known Allergies Allergy Verified 05/07/17 12:22 Exam Vital Signs: Temperature 98.6 F 05/07/17 14:48 Pulse Rate 88 05/07/17 14:48 Respiratory Rate 16 05/07/17 14:48 Blood Pressure 118/77 05/07/17 14:48 Pulse Oximetry 99 05/07/17 14:48 Height/Weight/BMI: Height 1.68 m Weight 66.4 kg Body Mass Index 23.6 - Constitutional Present: no acute distress, well nourished, well developed - Routine HEENT Exam Eye: Present: EOMI ENT: Present: mucous membranes moist, dentition normal - Routine Respiratory Exam Present: CTA bilaterally. Absent: wheezes - Routine Cardiovascular Exam Present: RRR, S1, S2. Absent: murmur - Routine Abdominal Exam Present: soft, non distended. Absent: normoactive bowel sounds (hypoactive), tenderness - Routine Extremities Exam Present: normal capillary refill - Routine Skin Exam Present: dry, warm - Routine Neurological Exam Present: alert, oriented X3, CN II-XII intact - Routine Psychiatric Exam Present: normal affect Results - Labs CBC & Chem 7: 05/07/17 13:07 05/07/17 13:07 Assessment and Plan (1) Nausea Current visit: Yes Status: Acute (2) Ureteral stone Current visit: Yes Status: Acute (3) Urinary tract infection Current visit: Yes Status: Acute Assessment and Plan: Impression Ureteral calculi- 3 MM right UVJ Urinary tract infection- POA Leukocytosis-WBC count 19 Hypokalemia-present on admission Depression Plan The patient to outpatient observation under the care of Dr. Acevedo for ureteral calculi, UTI, and nausea Continue with IV hydration, normal saline at 150 ML per hour She did receive IV Rocephin while in the emergency room. We will continue this every 24 hours. Urine culture pending. Zofran, available as needed for nausea. Toradol and Dilaudid available as needed for pain control. Routine home medications are resumed. As long as nausea is under control, patient may have clear liquid diet and advance as able. Strain all urine to evaluate for calculi. [place] as needed for comfort. SCDs to bilateral lower extremity for DVT prophylaxis. Will discuss further orders and plan agree with attending, Dr. Acevedo. At time of discharge medical care will return to primary care provider at [facility], Jessenia Lala GUEST SERVICES ASSISTANT DVT Prophylaxis: SCD's Resuscitation Status: Full Code - Physician Narrative Physician: Cristian Acevedo MD Narrative: Date: 05/07/17 Time: 1726 Have independently interviewed and examined pt. Chart reviewed. Case discussed with ED provider and my GUEST SERVICES ASSISTANT. Care plan developed with my supervision; agree with above. Developed crampy ab pain this morning-noticed acutely when she work. At first, thought was her period. Unfortunately pain increased with time. Severe constant pain to right flank. Nothing helped pain. Nauseated due to pain. Never had symptoms like this before. Had friend bring her to ED for evaluation. Needed IV MS and Zofran for symptom control. CT showing renal stone. Patient place in OBS status for symptom control while stone passes. Lungs: clear CV: regular AB: soft nt/nd MSE: awake alert appropriate Plan: OBS. IVF. Rocephin for urinary coverage. IV Dilaudid and Zofran for symptom control. Strain urine. Clear liquids due to nausea, advancing as able. Recheck lab in am. Hospital Course Summary Disclaimer: The visit summary below is not to be considered part of the above Progress Note. Hospital Course: Impression Ureteral calculi- 3 MM right UVJ Urinary tract infection- POA Leukocytosis-WBC count 19 Hypokalemia-present on admission Depression Plan The patient to outpatient observation under the care of Dr. Acevedo for ureteral calculi, UTI, and nausea Continue with IV hydration, normal saline at 150 ML per hour She did receive IV Rocephin while in the emergency room. We will continue this every 24 hours. Urine culture pending. Zofran, available as needed for nausea. Toradol and Dilaudid available as needed for pain control. Routine home medications are resumed. As long as nausea is under control, patient may have clear liquid diet and advance as able. Strain all urine to evaluate for calculi. [place] as needed for comfort. SCDs to bilateral lower extremity for DVT prophylaxis. Will discuss further orders and plan agree with attending, Dr. Acevedo. At time of discharge medical care will return to primary care provider at [facility], Jessenia Reeves APRN
[2017-05-07] MEDS ORDERED: HYDROCODONE/APAP 5mg/325mg TABLET PO PRN (17:35)
[2017-05-07] MEDS: KETOROLAC 15 MG/ML INJECTION IVP PRN (20:43)
[2017-05-07] MEDS ORDERED: ARIPiprazole 2 MG TABLET PO SCH (21:00)
[2017-05-07] MEDS ORDERED: SERTRALINE 100 MG TABLET PO SCH (21:00)
[2017-05-07] MEDS: POTASSIUM CHLORIDE INJ 40 MEQ in NS 1,000 ML IV SCH (22:36)
[2017-05-08] MEDS: KETOROLAC 15 MG/ML INJECTION IVP PRN (05:10)
[2017-05-08 07:41] VITALS: BP 113/68; PULSE 85; TEMP 99; O2SAT 98
[2017-05-08] MEDS ORDERED: CEFTRIAXONE 1 G in NS 50 ML IV SCH (08:00)
[2017-05-08] MEDS: POTASSIUM CHLORIDE INJ 40 MEQ in NS 1,000 ML IV SCH (08:48)
--- NOTE | 2017-05-08 10:00 | Progress Note ---
- Date 05/08/17 Subjective: F/U: Kidney stone, UTI, Leukocytosis Improving. Nausea resolved. Drinking well. Appetite increasing but not 100%. Pain decreasing. Urinating well-not seeing stone (likely passed as she got to floor yesterday). Passing flatus. Strength improving. Objective Vital signs: Temperature 99.0 F 05/08/17 07:37 Pulse Rate 85 05/08/17 07:37 Respiratory Rate 16 05/08/17 07:37 Blood Pressure 113/68 05/08/17 07:37 Pulse Oximetry 98 05/08/17 07:37 Height/Weight/BMI: Height 1.68 m Weight 69.1 kg Body Mass Index 23.6 - Constitutional Present: well nourished, well developed, cooperative - Routine HEENT Exam Head: Present: normocephalic, atraumatic Eye: Present: EOMI, PERRL ENT: Present: mucous membranes moist - Routine Respiratory Exam Present: CTA bilaterally. Absent: rales, respiratory distress, rhonchi, stridor , wheezes, crackles - Routine Cardiovascular Exam Present: RRR, no murmur - Routine Abdominal Exam Present: soft, normoactive bowel sounds, non distended, non tender. Absent: guarding - Routine Extremities Exam Present: no edema, pulses intact. Absent: cyanosis, clubbing - Routine Musculoskeletal Exam Musculoskeletal: Present: no clubbing or cyanosis, normal strength - Routine Skin Exam Present: intact, dry, warm - Routine Neurological Exam Present: alert, oriented X3, CN II-XII intact, moving all extremities, vision grossly intact, hearing grossly intact, normal speech. Absent: motor deficit, altered mental status - Routine Psychiatric Exam Present: normal affect, normal thought process, cooperative, good insight Results - Labs CBC & Chem 7: 05/08/17 04:25 05/08/17 04:25 Assessment and Plan (1) Ureteral stone Current visit: Yes Status: Acute (2) Urinary tract infection Current visit: Yes Status: Acute (3) Nausea Current visit: Yes Status: Acute Assessment and Plan: Impression Ureteral calculi- 3 MM right UVJ Urinary tract infection - (POA) - E coli Leukocytosis-WBC count 19 Hypokalemia-present on admission Depression Plan WBC decreasing. Potassium normalized. Nausea resolved. Pain improving. With clinical improvements, will discharge to home. Medically stable. Regular diet-encourage fluids. Cranberry juice may be beneficial. Cephalexin 500mg TID for 5 days - can start tomorrow as will have dose of Rocephin today. Pain control with ibuprofen 200mg 3-4 tables TID with food/snack, [place] 5 1 q4hr prn, Tylenol prn. Aspercreme to back as needed. Advised not to use more than 3250mg acetaminophen in any 24 hour period. Will have Zofran (ondansetron) 4mg available every 6 hours as needed for nausea. Strain all urine for 1 week - if stone found, bring to PCP for evaluation. May return to school on Wednesday05/10/17. F/U with Jessenia Reeves in 1 week. See orders for details. Cased discussed with patient and her father. Time spent with patient care and discharge greater than 30 minutes. Resuscitation Status: Full Code - Physician Narrative Physician: Cristian Acevedo MD Narrative: Date: 05/08/17 Time: 09 Hospital Course Summary Disclaimer: The visit summary below is not to be considered part of the above Progress Note. Hospital Course: 05/07/17 Initiate outpatient observation under the care of Dr. Acevedo for ureteral calculi, UTI, and nausea. Continue with IV hydration, normal saline at 150 ML per hour. Will add potassium to IVF to correct hypokalemia. She did receive IV Rocephin while in the emergency room. We will continue this every 24 hours. Urine culture pending. Zofran, available as needed for nausea. Toradol and Dilaudid available as needed for pain control. Routine home medications are resumed. As long as nausea is under control, patient may have clear liquid diet and advance as able. Strain all urine to evaluate for calculi. [place] as needed for comfort. SCDs to bilateral lower extremity for DVT prophylaxis. At time of discharge medical care will return to primary care provider at [facility], Jessenia Reeves TERMITE TREATER 05/08/17 WBC decreasing. Potassium normalized. Nausea resolved. Pain improving. With clinical improvements, will discharge to home. Medically stable. Regular diet-encourage fluids. Cranberry juice may be beneficial. Cephalexin 500mg TID for 5 days - can start tomorrow as will have dose of Rocephin today. Pain control with ibuprofen 200mg 3-4 tables TID with food/snack, [place] 5 1 q4hr prn, Tylenol prn. Aspercreme to back as needed. Advised not to use more than 3250mg acetaminophen in any 24 hour period. Will have Zofran (ondansetron) 4mg available every 6 hours as needed for nausea. Strain all urine for 1 week - if stone found, bring to PCP for evaluation. May return to school on Wednesday05/10/17. F/U with Jessenia Reeves in 1 week. See orders for details.
--- NOTE | 2017-05-08 10:29 | Discharge Summary ---
Discharge Information Date of admission: 05/07/17 14:44 Anticipated date of discharge: 05/08/17 Attending Physician: Cristian Acevedo MD Primary care physician: Jessenia Reeves APRN - Discharge Diagnosis (1) Ureteral stone Status: Acute (2) Urinary tract infection Status: Acute (3) Nausea Status: Acute Discharge diagnosis Ureteral calculi- 3 MM right UVJ Associated conditions and complications Urinary tract infection - (POA) - E coli Leukocytosis-WBC count 19 Renal colic Hypokalemia-present on admission Nausea/Vomiting Depression - Laboratory Labs: Admit Lab 05/07/17 13:07 WBC 19.6 H Hgb 12.9 Hct 38.6 MCV 87.3 Plt Count 271 Neutrophils % (Manual) 75.0 H Band Neutrophils % 7.0 H Lymphocytes % (Manual) 9.0 L Monocytes % (Manual) 8.0 Basophils % (Manual) 1.0 Admit Lab 05/07/17 13:07 Sodium 142 Potassium 3.4 L Chloride 109 H Carbon Dioxide 22 Anion Gap 11 BUN 11.0 Creatinine 0.6 L GFR Calculation 129 BUN/Creatinine Ratio 18 Glucose 97 Calculated Osmolality 272 Calcium 9.5 Total Bilirubin 0.60 AST 20 ALT 28 Alkaline Phosphatase 81 Total Protein 7.8 Albumin 4.7 Globulin 3.1 Albumin/Globulin Ratio 1.5 05/08/17 04:25 05/08/17 04:25 - Microbiology Urine culture growing E coli - sensitivities pending. - Radiology Radiology: Date of Exam: 05/07/17 EXAM: CT abdomen pelvis w con FINDINGS: Lower Chest: The visualized portions of the lower lungs are well aerated. No focal airspace disease. The heart is normal in size without pericardial effusion. Abdomen: No intraperitoneal free air. No intra-abdominal free fluid or fluid collections. No lymphadenopathy. Liver: The liver enhances homogeneously without focal masses. Gallbladder and biliary: The gallbladder appears normal. No biliary ductal dilatation. Spleen: The spleen appears normal. Pancreas: The pancreas demonstrates homogeneous attenuation. Adrenal glands: The adrenal glands are normal in size and attenuation. Kidneys/ureters: Asymmetric prominence of the right renal pelvis and ureter relative to the left. There is suggestion of a small 3 mm stone within the distal right ureter best appreciated on coronal images 22/23. The kidneys appear otherwise normal. GI tract: The stomach, small bowel, and colon appear grossly normal. The appendix is normal. Vascular structures: The aorta is normal in course and caliber. The mesenteric arterial and venous structures appear patent. Pelvis: No pelvic free fluid. No pelvic lymphadenopathy. Bladder: The bladder appears normal. Genital system: The uterus and ovaries appear grossly normal. Skeletal structures and soft tissues: The visualized skeletal structures are grossly normal. IMPRESSION: Mild right hydroureteronephrosis secondary to a 3 mm stone within the distal right ureter at the ureterovesicular junction. History of Present Illness HPI: Patient is a very pleasant 21-year-old female who presented to the emergency room today for acute evaluation of right lower quadrant abdominal pain that started approximately 7 a.m. this morning. She reports over the course of the morning her symptoms began to worsen and were accompanied with nausea and vomiting along with one episode of diarrhea. She denied having any fevers, coughs, or other symptoms. Further acute evaluation was performed in the emergency room. Patient was found have leukocytosis with white count of 19.6, 76 % neutrophils, 7% bands. Patient did have mild hypokalemia, potassium of 3.4. Urinalysis is obtained showing trace protein, positive nitrates, 2+ leukocyte esterase, 3-50 WBCs with 4+ bacteria. Urine hCG is negative. Given her symptoms. CT scan of the abdomen was obtained. Patient was found to have mild right hydronephrosis secondary to a 3 millimeter stone within the distal right ureter at the UVJ. On arrival to the ER, patient was afebrile 98.4, pulse 64, respiration 16, blood pressure 124/84. Room air saturations 100%. Despite aggressive IV fluids, morphine, Toradol, Zofran, Compazine, she continued to have nausea and abdominal pain. Given these findings the hospitalist services were contacted and accepted patient for outpatient observation admission for further evaluation and treatment. It is expected that her stay will be less than 2 overnights. Patient does report that his prior to transportation to medical floor room. She did urinate and did note 2 small " foreign bodies" which may represent renal calculi. This was not collected by nursing staff. For complete details of the H&P refer to that document. Objective Vital signs: Temperature 99.0 F 05/08/17 07:37 Pulse Rate 85 05/08/17 07:37 Respiratory Rate 16 05/08/17 07:37 Blood Pressure 113/68 05/08/17 07:37 Pulse Oximetry 98 05/08/17 07:37 Height/Weight/BMI: Height 1.68 m Weight 69.1 kg Body Mass Index 23.6 Hospital Course This is a general summary of the patient's hospital course. For more details refer to the complete medical record. Hospital course: 05/07/17 Initiate outpatient observation under the care of Dr. Acevedo for ureteral calculi, UTI, and nausea. Continue with IV hydration, normal saline at 150 ML per hour. Will add potassium to IVF to correct hypokalemia. She did receive IV Rocephin while in the emergency room. We will continue this every 24 hours. Urine culture pending. Zofran, available as needed for nausea. Toradol and Dilaudid available as needed for pain control. Routine home medications are resumed. As long as nausea is under control, patient may have clear liquid diet and advance as able. Strain all urine to evaluate for calculi. [place] as needed for comfort. SCDs to bilateral lower extremity for DVT prophylaxis. At time of discharge medical care will return to primary care provider at [facility], Jessenia Reeves MEDICAL CODING SPECIALIST 05/08/17 WBC decreasing. Potassium normalized. Nausea resolved. Pain improving. With clinical improvements, will discharge to home. Medically stable. Regular diet-encourage fluids. Cranberry juice may be beneficial. Cephalexin 500mg TID for 5 days - can start tomorrow as will have dose of Rocephin today. Pain control with ibuprofen 200mg 3-4 tables TID with food/snack, [place] 5 1 q4hr prn, Tylenol prn. Aspercreme to back as needed. Advised not to use more than 3250mg acetaminophen in any 24 hour period. Will have Zofran (ondansetron) 4mg available every 6 hours as needed for nausea. Strain all urine for 1 week - if stone found, bring to PCP for evaluation. May return to school on Wednesday05/10/17. F/U with Jessenia Reeves in 1 week. See orders for details. Time spent with patient: discharge greater than 30 minutes Resuscitation Status: Full Code Discharge Plan - Discharge Disposition Discharge Date: 05/08/17 Disposition: Discharged Home, Self-Care *Condition: Stable Reason For Visit (Visit label in EMR): Kidney Stone - Discharge Medications *Discharge Medications: New cephALEXin [Cephalexin] 500 mg PO TID #15 tab Ibuprofen [Motrin] 200 mg PO Q8HR PRN #1 bottle PRN Reason: Pain Ondansetron HCl 4 mg PO Q6HR PRN #20 tab PRN Reason: Nausea Hydrocodone/APAP 5/325 [[place] 5/325] 1 tab PO Q4H PRN #30 tab PRN Reason: Pain Continue ARIPiprazole [Aripiprazole] 2 mg PO HS Sertraline [Zoloft] 100 mg PO HS - Discharge Packet/Instructions *Diet: Regular - plenty of liquids (water) *Activity: As tolerated *Pain Management/Treatment: Pain control with ibuprofen 200mg 3-4 tables every 8 hours with food/snack - watch for stomach upset. [place] 5 one tablet every 4 hours as needed for severe pain. Tylenol for minor pain. Do not to use more than 3250mg acetaminophen in any 24 hour period. Aspercreme to back as needed. Heating pad to back as needed. *Wound Care: N/A Additional Instructions: Cephalexin 500mg TID for 5 days - can start tomorrow as will have dose of Rocephin today. May use Zofran (ondansetron) 4mg every 6 hours as needed for nausea. Strain all urine for 1 week - if stone found, bring to PCP for evaluation. May return to school on Wednesday05/10/17. *Expected Signs/Symptoms: Decreasing pain and fever/chills. *Notify Physician if: Temp >101. Intractable nausea/vomiting. Intractable diarrhea. *During Business Hours Contact: [facility] *After Business Hours Contact: Call [facility] and have for care provider (or covering provider) contacted. *Pending Lab/Results: Follow up w/Provider (Urine sensitivities pending at discharge.) - Referrals/Follow Up *Referrals/Follow Up: Jessenia Reeves, MEDICAL CODING SPECIALIST [Family Provider] - 1 Week (F/U for kidney stone/UTI with Ecoli. ) - Patient Handouts - Dismissal Complete Discharge Instructions are:: Complete Physician Narrative - Narrative Physician: Cristian Acevedo MD Attestation Narrative: Date: 05/08/17 Time: 1025 I have independently interviewed and examined patient prior to discharge. See my progress note from today for details. Medically stable for discharge to home.
--- NOTE | 2017-05-08 10:36 | Work/School Release ---
Work/School Release - Date Date: 05/08/17 - Work Release Excused for:: Amy Love was hospitalized at [facility] from 05/07/17 until . She may return to school on 05/10/17.
== END 2017-05-08 11:35 | disposition home or self-care (01) ==
LOC: ED 11:41 → MED 11:41
PROVIDERS: ADMIT Hospitalist; ATTEND Hospitalist